=== PATIENT | female | born 1955 | race Caucasian/White ===

== ENCOUNTER 2018-09-02 18:22 | Emergency (ER) | payer SELFPAY ==
[~2018-09-02] VITALS: Ht 152.4 cm; Wt 49.9 kg
--- NOTE | 2018-09-02 18:30 | NUR ---
ADMITTED A 63 YO FEMALE, AMBULATORY WITH A CHIEF C/O OF SHOULDER PAIN AND A BLISTER OF HER RIGHT SIDE TONGUE. NO APPARENT DISTRESS NOTED.
[2018-09-02] MEDS ORDERED: ONDANSETRON 4 MG/2 ML VIAL IM ONE (19:00)
[2018-09-02] MEDS ORDERED: HYDROMORPHONE 1 MG/1 ML DISP.SYRIN IM ONE (19:00)
[2018-09-02] MEDS ORDERED: HYDROMORPHONE 1 MG/1 ML DISP.SYRIN ONE (19:18)
[2018-09-02] MEDS ORDERED: ONDANSETRON 4 MG/2 ML VIAL ONE (19:19)
--- NOTE | 2018-09-02 20:40 | NUR ---
Patient ambulated out of ER with stable gait. All belongings taken.
--- NOTE | 2018-09-02 20:40 | NUR ---
Patient discharged to home in stable conditon. Written and verbal after care instructions given. Patient verbalizes understanding of instructions.
[2018-09-02 20:41] VITALS: BP 126/64
== END 2018-09-02 20:42 | disposition home or self-care (01) ==
LOC: ER 18:24
DX: S16.1XXA Strain of muscle, fascia and tendon at neck level, initial encounter (principal); B00.1 Herpesviral vesicular dermatitis; W19.XXXA Unspecified fall, initial encounter; Y93.89 Activity, other specified; Y92.89 Other specified places as the place of occurrence of the external cause; Y99.8 Other external cause status
CPT/HCPCS: 72040; 96372 ×2; 99283; J1170; J2405; A4663